=== PATIENT | female | born 1945 | race Caucasian/White ===

== ENCOUNTER → 2018-11-22 09:40 | Outpatient (CLI) | payer MEDICARE, OTHER, SELFPAY ==
--- NOTE | 2018-11-22 | DI.MRI.S_ITS ---
PROCEDURE: MR KNEE RT WO CON INDICATIONS: Unilateral primary osteoarthritis, right knee TECHNIQUE: Noncontrast sagittal PD fast spin echo and T2 fast spin echo with fat saturation, sagittal 3-D FLASH with fat saturation; coronal T1 spin echo and PD fast spin echo with fat saturation, and axial PD fast spin echo with fat saturation through the knee. COMPARISON: [facility], RG, KNEE MIN 4VW (RT), 10/12/2016, 11:09. [facility] [place], CR, XR KNEE ARTHRITIC SERIES RT, 10/19/2018, 10:26. FINDINGS: Image quality: Excellent. Menisci: There is severe degenerative tear of both the medial and lateral menisci. There is tear of the posterior meniscal root ligament of the lateral meniscus. Cruciate ligaments: The anterior cruciate ligament is torn, which is likely chronic in the absence of findings of acute knee injury. The posterior cruciate ligament appears intact. Medial structures: The medial collateral ligament appears intact. The posterior oblique ligament, semimembranosus tendon insertions, oblique popliteal ligament, and meniscocapsular junction appear intact. Visualized portions of the pes anserinus tendons appear normal. No abnormal bursal fluid. Lateral structures: The lateral collateral ligament, long and short heads of the biceps femoris tendon appear intact. The popliteus tendon appears normal; the popliteofibular ligament appears intact. The posterosuperior and anteroinferior popliteomeniscal fascicles appear intact. The arcuate and fabellofibular ligaments appear intact, on either side of the lateral inferior geniculate artery. Iliotibial band appears normal. Anterior structures: The quadriceps and patellar tendons appear intact. Patellar alignment is normal. No femoral trochlear dysplasia or ventral trochlear prominence. No edema in the infrapatellar fat pad. Bones and cartilage: No bone marrow contusions or fractures. There is a large osteophyte arising from the anterior aspect of the lateral femoral condyle. There is tricompartmental cartilage loss and single degeneration with cartilage denuded articular surfaces. Reactive marrow edema is present in the medial and lateral tibial plateaus and femoral condyles. There is a large cyst under the tibial eminence. Joint space: Severe tricompartmental joint space narrowing. There is an several intra-articular body within the patellofemoral joint (best seen on series 8 image 38). There is moderate sized knee joint fluid. There is a small Carlin's cyst. Normal appearing synovial plicae are incidentally noted. IMPRESSION: 1. Chronic ACL tear. 2. Severe degenerative tear of the medial and lateral menisci. 3. Severe tricompartmental knee joint degeneration with cartilage denudation. 4. Moderate knee joint effusion. 5. There is an intra-articular body within the patellofemoral joint. 6. A small Carlin's cyst. Dictated by: Fred Holman M.D. on 11/22/2018 at 11:23 Approved by: Fred Holman M.D. on 11/22/2018 at 18:20
== END ==
PROVIDERS: PCP Family Medicine; Visit Provider Orthopaedic Surgery
DX: M17.11 Unilateral primary osteoarthritis, right knee (principal); M23.251 Derangement of posterior horn of lateral meniscus due to old tear or injury, right knee; M23.203 Derangement of unspecified medial meniscus due to old tear or injury, right knee; M23.8X1 Other internal derangements of right knee; M25.461 Effusion, right knee; M71.21 Synovial cyst of popliteal space [Baker], right knee
CPT/HCPCS: 73721

== ENCOUNTER 2019-01-03 07:56 | Day surgery (SDC) | payer MEDICARE, OTHER, SELFPAY ==
[2018-12-27 08:43] VITALS: BMI 25.2
[2019-01-03] VITALS (16 sets, daily range): BP systolic 118–158; BP diastolic 76–97; PULSE 64–97; RESP 12–20; TEMP 35.6–37; O2SAT 93–100; BMI 25.2
--- NOTE | 2019-01-03 06:00 | DI.RAD.S_ITS ---
PROCEDURE: XR KNEE RT 1TO2V INDICATIONS: post operative total right knee TECHNIQUE: 2 view(s) of the knee acquired. COMPARISON: None. FINDINGS: Bones: Patient is status post knee joint arthroplasty. Hardware components are in expected positions. Visualized bony structures are intact. Soft tissues: Overlying postoperative changes are noted. IMPRESSION: Expected postoperative appearance Dictated by: Rodney Lobo M.D. on 01/03/2019 at 16:07 Approved by: Rodney Lobo M.D. on 01/03/2019 at 16:08
[2019-01-03] MEDS: ACETAMINOPHEN 325 MG TABLET 975 MG PO ×2 (09:13→20:48)
[2019-01-03] MEDS: CELECOXIB 200 MG CAPSULE PO (09:14)
[2019-01-03] MEDS: PREGABALIN 75 MG CAPSULE PO (09:14)
[2019-01-03] MEDS: LACTATED RINGERS 1,000 ML 42 ML IV ×2 (09:14→12:23)
[2019-01-03] MEDS: VANCOMYCIN 1,000 MG/200 ML PIGGYBACK 200 MG IV (09:45)
--- NOTE | 2019-01-03 09:53 | PM.PREOP ---
Pre-operative Note Interval Note History & Physical reviewed/Exam performed by Physician: Yes Changes to H&P: No
--- NOTE | 2019-01-03 09:54 | P.OP_ITS ---
Operative Date/Time/Diagnoses Date of procedure: 01/03/19 Time of procedure: 10:53 Pre-op diagnosis: right knee OA Post-op diagnosis: same Procedure & Clinicians Procedure: Right total knee arthroplasty Same procedure as scheduled: Yes Indications: The patient has had progressively worsening right knee pain with radiographic changes consistent with arthritis. Non-operative management has failed and the patient has requested total knee replacement. The risks, benefits and alternatives to surgery were discussed with the patient prior to proceeding. Risks discussed included, but were not limited to, failure to relieve pain, stiffness, infection, nerve damage, deep venous thrombosis, pulmonary embolism, stroke, coma, heart attack, permanent paralysis and , as well as the potential need for eventual revision of the prosthetic. Surgeon: Radha Dsouza Supervisor Finish End: Jenny Angelo Anesthesia Type: General and Spinal Operative Notes Findings: Severe right knee osteoarthritis, good stability Closure Type: primary Specimen(s): none sent Prosthetic devices, grafts, tissues, transplants, or devices: Dsouza and Nephew Isidroney BCS 2 size 5 right femur, size 4 right tibia, +10 poly, 35 x 7.5 mm patella Applied: drain(s) Estimated Blood Loss (mL): 250 Blood products transfused: none Tourniquet time (min): 76 Procedure in detail: The patient was seen in the pre-operative area, where the patient identified the right knee as the operative site and this was marked with my initials. The patient received pre-operative antibiotics, and was taken to the operating room and placed on the operative table in the supine position. After satisfactory anesthesia, a real time trader out was performed. The right leg was encircled with a tourniquet about the proximal thigh, and the leg was prepared from the toes to the tourniquet with ChloroPrep in the usual fashion and draped through sterile drapes. The leg was elevated and exsanguinated with Eschmark bandage and the tourniquet inflated to [250] mmHg pressure. The knee was approached through an approximately 18 cm incision centered over the patella and carried into the knee through a medial parapatellar arthrotomy. A portion of the medial and lateral meniscus was resected. Soft tissue was carefully mobilized around the patella the patella was measured with a caliper. Bone was resected from the patella and the patellar height was reconstituted with up an appropriate sized patellar component. A cover was then placed on the patella. A small amount of additional medial and lateral meniscus was resected. The visionare guide fit well to the distal femur. It looked like an appropriate distal femoral cut and the cut was made without difficulty. The rotation was assessed and the appropriate size femoral guide was placed on the distal femur and finishing cuts were made. There was no evidence of notching. The anterior, posterior and chamfer cuts were then made. The posterior osteophytes and soft tissues were then removed. The posterior capsule was injected with part of a mixture of 60 ml 0.25% Marcaine mixed with 20 ml Exparel for post operative pain control. The remainder of this mixture was injected into the capsule and subcutaneous tissues during cement curing. The tibia was prepared and the visionaire guide fit well to the distal tibia. The rotation was assessed. The patient was placed in extension residual medial and lateral meniscus as well as any residual bone was carefully resected. [No] additional tibia was resected. Hemostasis was achieved especially posteriorly. Additional local was injected into the posterior capsule. The extension gap was assessed and additional releases for gap balancing were performed as necessary. It was checked with the gap nut roaster helper. The femoral component was trial was placed and the notch was finished. Trial tibial and femoral components were then placed and the knee placed through a range of motion. Range of motion was [0-130], with good stability throughout the range. The trials were then removed, and the tibia was finished. The bone was prepared with pulsatile lavage, and dried with a sponge. Cement was applied and the final prosthetics placed. Excess cement was removed during and after cement curing. A brief Betadine soak was performed. After confirming there was no extruded cement posteriorly, the final tibial insert was placed. The knee was copiously irrigated and the tourniquet deflated. Hemostasis was obtained with the Bovie. A drain was placed and brought out superolaterally. The capsule was closed with interrupted Vicryl. The subcutaneous layer was closed with barbed sutures, and the skin with a running 3-0 V-Lock suture and Surgical glue. An Aquacel Ag dressing was applied and the patient was taken to recovery having tolerated the procedure well. Complications: none Condition: stable Disposition: Acute Care Plan for aftercare: The patient will be maintained on a standard total knee replacement protocol with weight bearing as tolerated. The patient will receive aspirin and sequential compression devices for DVT prophylaxis. The patient will be discharged home when safe for the home environment.
[2019-01-03] MEDS: CEFAZOLIN 2 GM/100 ML FROZ.PIGGY IV ×2 (11:03→18:31)
[2019-01-03] MEDS: TRANEXAMIC ACID 1,000 MG VIAL 2000 MG INJ ×2 (11:08→12:10)
--- NOTE | 2019-01-03 11:19 | SUR.OPER ---
Supine on padded OR bed. Pillow under head, arms secured on padded armboards <90 degree abduction. Safety belt across torso. Non-operative leg secured with tape over blanket over lower leg. Operative leg secured in DeMayo/Isaac positioner. Foam padded brace at thigh of operative leg.
[2019-01-03] MEDS: BUPIVACAINE 0.25% W/ EPI 30 ML VIAL 60 ML INJ (11:33)
[2019-01-03] MEDS: BUPIVACAINE LIPOSOME 266 MG/20 ML VIAL INJ (11:33)
[2019-01-03] MEDS: POVIDONE-IODINE 15 ML, SODIUM CHLORIDE 0.9% 250 ML TOP (11:34)
--- NOTE | 2019-01-03 13:39 | SUR.PHASEI ---
pt in stable condition, vss. Report called to BLUE Arechiga on acute care floor. pt being transferred to acute care floor at this time.
--- NOTE | 2019-01-03 13:51 | SUR.PHASEI ---
pt transferred to acute care floor in stable condition, vss. pt alert and talking to RN during transport. Bedside report given to ADRIAN Arechiga upon arrival to room. Transferred care of pt to Adrian Kahn at that time. No change in pt from time left PACU.
[2019-01-03] MEDS: LACTATED RINGERS 1,000 ML 125 ML IV ×2 (14:27→23:16)
--- NOTE | 2019-01-03 15:43 | PC.NURSE ---
Day Shift- Report rec'd from PACU by RN Coordinator Hawk. Pt arrived to unit room 215 at 1347 via bed. Hawk and BENJAMIN in room. At 1415, assessed pt and admission assessment complete. Rates 1-2/10 pressure to right knee. Right knee aquacel dressing CDI with amirah wrap. CMS+, PPP. At 1455, hemovac unclamped. Post op instructions explained to pt. Call light within reach.
--- NOTE | 2019-01-03 17:33 | PT.IIE ---
Current Diagnoses Unilateral primary osteoarthritis, right knee (01/03/19) Surgery Performed Operation Date: 01/03/19 10:45 Actual Procedures p Total Knee Arthroplasty(Right) - Radha Dsouza MD Surgical History (Last Updated 12/27/18 @ 09:08 by Nai Teague, RN) Hx of bilateral cataract extraction (Acute ~2019) Medical History (Last Updated 12/27/18 @ 09:13 by Nai Teague, RN) Anxiety about health (Acute) HTN (hypertension) (Acute) Hx of vaginal delivery (Acute) Seasonal allergies (Acute) Thin skin (Acute) Physical Therapy Inpatient Evaluation/Re-Eval M1 PT/OT-IP Prior Functional Status Start: 01/03/19 17:18 Freq: NEEDED Status: Active Protocol: Document 01/03/19 17:18 EA (Rec: 01/03/19 17:33 EA [id number]) Medical Review Prior Functional Status Medical History Reviewed Yes Diet/Fluid Consistency Regular Communication normal Mobility and Gait Indep with no AD used. No fall reported in the past 6 months Activities of Daily Living and IADL's Independent Social History Household Members none Living Arrangements Apartment/Condo Number of Floors (Floors) Two Floors Number of Stairs To Enter/Railing? 16 steps with rails. Patient states will stay on her friend with single stair only Home Environment Standard Height Toilet Home Equipment Front Wheel Walker Straight Cane Employment Status Retired Additional Social History Comment Lives alone M2 PT-IP Current Condition Start: 01/03/19 17:18 Freq: NEEDED Status: Active Protocol: Document 01/03/19 17:18 EA (Rec: 01/03/19 17:33 EA [id number]) Physical Therapy Current Condition Weight Bearing Status Weight Bearing Status Weight Bear as Tolerated M3 PT-IP Subjective Start: 01/03/19 17:18 Freq: NEEDED Status: Active Protocol: Document 01/03/19 17:18 EA (Rec: 01/03/19 17:33 EA [id number]) Subjective Physical Therapy Visit Type Type Initial Evaluation Visit Start Time 16:50 Visit Stop Time 17:25 Total Visit Minutes 35 Physical Therapy Visit Comments Patient Comments Patient would like to transfer to chair. Patient Goals Be able to naviaget 1 steps and be indep in transfer prior to discharge Therapy Pain Assessment Pain When Pain Assessed At Rest Pain Present Pain Present Pain Reported Location Right Knee Intensity 3 Scale Used Numeric (1 - 10) Description Acute Pain Behaviors Wincing M4 PT-IP Mobility and Gait Start: 01/03/19 17:18 Freq: NEEDED Status: Active Protocol: Document 01/03/19 17:18 EA (Rec: 01/03/19 17:33 EA [id number]) PT-Bed Mobility Assessment Supine to Sit Supine to Sit Standby Assistance Sit to Supine Sit to Supine Standby Assistance Scooting Scooting to Edge of Bed Standby Assistance PT-Transfer Assessment Sit to and From Stand Sit to and from Stand Contact Guard Assistance Equipment Transfer Assistive Device Gait Belt Front Wheeled Walker Orthotic/Prosthetic Devices or Brace: No Transfers Transfer Destination Bed Chair Bedside Commode Transfer Technique stepping Transfer Ability Level of Assist Contact Guard Assistance Gait Assessment Gait Gait Assistance Required: Contact Guard Assist Distance (Feet) 8 Able to Maintain Weight Bearing Status Yes During Gait Assistive Devices Assistive Device Gait Belt Front Wheeled Walker Gait Deviations General Gait Pattern Antalgic Factors Limiting Gait Function Factors Limiting Gait Function Decreased Strength Pain Comments Gait Comments Requires cues for foot placement and sequencing PT-Balance Assessment Sitting Balance and Reactions Static Sitting Balance Ability Good Dynamic Sitting Balance Ability Good Standing Balance and Reactions Static Standing Balance Ability Good Dynamic Standing Balance Ability Fair M5 PT-IP Objective Assessments Start: 01/03/19 17:18 Freq: NEEDED Status: Active Protocol: Document 01/03/19 17:18 EA (Rec: 01/03/19 17:33 EA [id number]) Orientation Orientation/Cognition Level of Alertness Alert Orientation Name Age Birthday Month Date Language Function Ability No Deficits Noted Safety Awareness Understands Safety Issues Memory Description No Deficits Noted Gross Range of Motion Upper Extremity ROM Assessment Within Functional Limits Lower Extremity ROM Assessment Right Impaired Impairments N/A but with at least 0-90 deg F/E Strength Upper Extremity Strength Assessment Within Functional Limits Lower Extremity Strength Assessment Right Impaired Knee at least 3+/5 Coordination Assessment Gross Coordination Gross Coordination WNL Assessment Finger to Nose Test Normal Performance Sensation Assessment Sensation Gross Sensation WNL Light Touch Intact Proprioception (Position) Intact M6 PT-IP Treatment Start: 01/03/19 17:18 Freq: NEEDED Status: Active Protocol: Document 01/03/19 17:18 EA (Rec: 01/03/19 17:33 EA [id number]) Physical Therapy Treatment Exercises Exercises Ankle Pumps Gluteal Sets Quad Sets Heel Slides Straight Leg Raises Short Arc Quads Passive Knee Extension Hang Seated Knee Flexion/Extension Education Education Provided Precautions Weight Bearing Status Post-Op Packet Safety M7 PT-IP Assessment and Plan Start: 01/03/19 17:18 Freq: NEEDED Status: Active Protocol: Document 01/03/19 17:18 EA (Rec: 01/03/19 17:33 EA [id number]) PT Summary Assessment and Plan Potential Rehabilitation Potential Good Status of Condition at Evaluation Stable Summary Impairments Pain ROM Strength Balance Bed Mobility Transfers Gait Activity Tolerance Assessment Summary Patient demonstrates decreased tolerance to functional transfers and mobility and that requires assistance for safety at this time. Patient would benefit with skilled PT to improve transfers, ambulation, gait, and ability to navigate stair prior to discharge for safety. Patient shows good rehab potential and will likely reach her functional independence. Goals Bed Mobility Goal Independent Transfer Goal Independent Gait Goal Independent Gait Distance 50 ft Other Goals stairs x 2 steps with no rails Days to Meet Goals 2 Frequency of Treatment Frequency Of Treatment Twice a Day Treatment Plan Physical Therapy Treatment Plan Bed Mobility Training Transfer Training Gait Training Therapeutic Exercise Post Op Education Discharge Planning Neuromuscular Re-ed Manual Therapy Recommendations To Nursing Amount of Assist Needed Standby Assistance Discharge Recommendations PT Discharge Recommendations Home with Assistance
[2019-01-03] MEDS: ATENOLOL 25 MG TABLET PO (20:45)
[2019-01-03] MEDS: DOCUSATE 100 MG CAPSULE PO (20:46)
[2019-01-03] MEDS: ASPIRIN EC 81 MG TABLET PO (20:46)
--- NOTE | 2019-01-03 23:44 | PC.NURSE ---
Addendum entered by Tatiana Monroy R.N. 01/04/19 06:13: Continues to deny pain. Discussed taking Tylenol now but wants pain med on board when doing PT and does not want to take any narcotics so decided to wait until later for scheduled Tylenol. States no real pain just an ache. Ice packs applied. Original Note: Patient is alert and oriented. Breath sounds CTA with RA sat of 98%; on continuous pulse oximetry. HRR. Denies nausea. BT present and is passing flatus. Able to move self in bed and gets up to bathroom with walker and SBA. Dressing (Aquacel + amirah wrap) to right knee is CDI. Hemovac is intact and compressed. Some swelling noted around knee; encouraged ankle waving. Wearing bilateral SCD's. CMS intact. Fall risk score is moderate; bed alarm is activated. States pain is only an ache with severity of 1/10; ice applied to knee. Daughter rooming in.
[2019-01-04] MEDS: CEFAZOLIN 2 GM/100 ML FROZ.PIGGY IV (00:58)
[2019-01-04 04:15] VITALS: BP 122/79; PULSE 68; RESP 17; O2SAT 100
[2019-01-04] MEDS: ATENOLOL 25 MG TABLET PO (06:09)
[2019-01-04 06:40] VITALS: TEMP 36.6
[2019-01-04 07:15] LABS: Hematocrit 34.8 % (36-46); Hemoglobin 11.6 g/dL (12.0-16.0)
[2019-01-04] MEDS: ACETAMINOPHEN 325 MG TABLET 975 MG PO (08:40)
[2019-01-04] MEDS: SODIUM CHLORIDE 0.9% FLUSH 10 ML IV (08:40)
[2019-01-04] MEDS: ASPIRIN EC 81 MG TABLET PO (08:40)
--- NOTE | 2019-01-04 09:34 | PT.IPTN ---
Current Diagnoses Unilateral primary osteoarthritis, right knee (01/03/19) Surgery Performed Operation Date: 01/03/19 10:45 Actual Procedures p Total Knee Arthroplasty(Right) - Radha Dsouza MD Physical Therapy Treatment Note M2 PT-IP Current Condition Start: 01/03/19 17:18 Freq: NEEDED Status: Active Protocol: Document 01/03/19 17:18 EA (Rec: 01/03/19 17:33 EA [id number]) Physical Therapy Current Condition Weight Bearing Status Weight Bearing Status Weight Bear as Tolerated M3 PT-IP Subjective Start: 01/03/19 17:18 Freq: NEEDED Status: Active Protocol: Document 01/04/19 09:00 LJ (Rec: 01/04/19 09:34 LJ [email or web address]) Subjective Physical Therapy Visit Type Type Treatment Note Visit Start Time 09:00 Visit Stop Time 09:25 Total Visit Minutes 25 Physical Therapy Visit Comments Patient Comments wants to get up and walk Therapy Pain Assessment Pain When Pain Assessed During Mobility Pain Present Pain Present Pain Reported M4 PT-IP Mobility and Gait Start: 01/03/19 17:18 Freq: NEEDED Status: Active Protocol: Document 01/04/19 09:00 LJ (Rec: 01/04/19 09:34 LJ [id number]) PT-Bed Mobility Assessment Supine to Sit Supine to Sit Standby Assistance Sit to Supine Sit to Supine Standby Assistance Scooting Scooting to Edge of Bed Standby Assistance PT-Transfer Assessment Sit to and From Stand Sit to and from Stand Standby Assistance Equipment Transfer Assistive Device Gait Belt Front Wheeled Walker Orthotic/Prosthetic Devices or Brace: No Transfers Transfer Destination Bed Transfer Technique Stand Step Pivot Transfer Ability Level of Assist Standby Assistance Comments Mobility Comments Pt SBA for all bed mobility. Reports very little pain with all mobility. Gait Assessment Gait Gait Assistance Required: Standby Assistance Contact Guard Assist Distance (Feet) 150 Assistive Devices Assistive Device Gait Belt Front Wheeled Walker Gait Deviations General Gait Pattern Antalgic Factors Limiting Gait Function Factors Limiting Gait Function Decreased Activity Tolerance Decreased Strength Pain Comments Gait Comments Pt with mostly step-to pattern using FWW appropriately. Reports fatigue but not pain with ambulation. Able to fully weight bear and advance involved LE suffeciently. Stair Climbing Assessment Evaluation Level of Assist On Stairs Standby Assistance Devices Stair Climbing Assistive Devices Left Railing Right Railing Technique/Endurance Stair Climbing Direction Ascend and Descend Stair Climbing Technique Step Over Step Number of Steps Climbed 3 Stair Climbing Set # Repetitions (reps) 3 Comments Stair Climbing Comments Pt able to ascend and descend with either LE leading using bilateral rails M5 PT-IP Objective Assessments Start: 01/03/19 17:18 Freq: NEEDED Status: Active Protocol: Document 01/03/19 17:18 EA (Rec: 01/03/19 17:33 EA [id number]) Orientation Orientation/Cognition Level of Alertness Alert Orientation Name Age Birthday Month Date Language Function Ability No Deficits Noted Safety Awareness Understands Safety Issues Memory Description No Deficits Noted Gross Range of Motion Upper Extremity ROM Assessment Within Functional Limits Lower Extremity ROM Assessment Right Impaired Impairments N/A but with at least 0-90 deg F/E Strength Upper Extremity Strength Assessment Within Functional Limits Lower Extremity Strength Assessment Right Impaired Knee at least 3+/5 Coordination Assessment Gross Coordination Gross Coordination WNL Assessment Finger to Nose Test Normal Performance Sensation Assessment Sensation Gross Sensation WNL Light Touch Intact Proprioception (Position) Intact M6 PT-IP Treatment Start: 01/03/19 17:18 Freq: NEEDED Status: Active Protocol: Document 01/03/19 17:18 EA (Rec: 01/03/19 17:33 EA [id number]) Physical Therapy Treatment Exercises Exercises Ankle Pumps Gluteal Sets Quad Sets Heel Slides Straight Leg Raises Short Arc Quads Passive Knee Extension Hang Seated Knee Flexion/Extension Education Education Provided Precautions Weight Bearing Status Post-Op Packet Safety M7 PT-IP Assessment and Plan Start: 01/03/19 17:18 Freq: NEEDED Status: Active Protocol: Document 01/04/19 09:00 LJ (Rec: 01/04/19 09:34 LJ [id number]) PT Summary Assessment and Plan Summary Assessment Summary Pt near independent for all bed mobility and gait. Very little pain reported. Demonstrated safety awareness and use of FWW. Safe to D/C home with assistance. Frequency of Treatment Frequency Of Treatment Twice a Day Treatment Plan Physical Therapy Treatment Plan Bed Mobility Training Transfer Training Gait Training Therapeutic Exercise Post Op Education Discharge Planning Neuromuscular Re-ed Manual Therapy Recommendations To Nursing Amount of Assist Needed Standby Assistance Discharge Recommendations PT Discharge Recommendations Home with Assistance
--- NOTE | 2019-01-04 10:24 | PM.DS.1 ---
History of Present Illness Date Patient Seen: 01/04/19 Time Patient Seen: 10:24 Chief complaint: [id number] Right Total Knee Arthroplasty Narrative: Hospital day 2, postop day 1 following right total knee arthroplasty by Dr. Dsouza. Patient has remained stable. She did work with PT yesterday and felt she was stable for home. Her daughter has been staying with her in the room. She is thus with path patient and has prescriptions for oxycodone and Vistaril at home. She wants to avoid narcotics if possible. Scheduled to go to [facility] in [place]. Discharge Providers Date of admission: 01/03/19 07:56 Discharge Date: 01/04/19 Primary care physician: Alejandro Negron DO Consults: 01/03/19 06:00 Consult to Anesthesiology Routine Comment: Consulting Provider: Anesthesiologist Reason for consultation: Regional block for post operative pain control 01/03/19 14:09 Consult to Discharge Planning Routine Comment: Consult to Physical Therapy Evaluate & Treat Comment: Physician Instructions: postop TKA protocol Consult to Respiratory Therapy Evaluate & Treat Comment: Physician Instructions: Evaluate and treat Discharge provider: Zan Marino PA-C Summary Discharge Diagnosis: Status post right total knee arthroplasty Hospital Course: Patient brought to hospital on 01/03/2019 for above-noted surgery. She remained stable postoperatively. Progressed with physical therapy. Ready for discharge home on postop day 1. Status at Discharge Cognitive/behavioral status at discharge: oriented Functional status at discharge: uses cane/walker Overall status at discharge: patient is progressing back to baseline Time Spent with Patient Less than 30 minutes Exam Vital Signs (past 8 hours): - 01/04/19 04:15 01/04/19 06:40 Temperature 97.9 F Pulse Rate 68 Respiratory Rate 17 Blood Pressure 122/79 Pulse Oximetry 100 Fraction of Inspired Oxygen 21 Oxygen Delivery Method Room Air Oxygen Flow Rate 0 Narrative Exam Narrative: Alert, oriented no acute distress resting in bed. Legs. Reggie wrap an Aquacel dressing to right knee is dry without drainage or inflammation. No calf pain or swelling. Pulses symmetrical. Objective Labs Result Diagrams: 01/04/19 06:40 Labs: Laboratory Results - last 24 hr 01/04/19 06:40 Hgb 11.6 L Hct 34.8 L Discharge Plan Discharge Plan Patient Disposition: Home Discharge comment: Discharge home after cleared by PT. She is a [facility] patient and has prescription for oxycodone at home. She is scheduled to go to [facility] in [place]. Discharge Med Rec/Prescriptions Prescriptions: New acetaminophen 325 mg Tablet 975 mg PO TID Qty: 30 RF: 0 aspirin 81 mg Tablet,Delayed Release (Dr/Ec) 81 mg PO BID Qty: 60 RF: 0 Continued atenolol 50 mg Tablet 25 mg PO BID RF: 0 Follow up/Referrals: Alejandro Negron DO [Primary Care Provider] - Provider Discharge Instructions Diet: Diet as Tolerated Activity: Ambulate as tolerated. Use walker as needed. Do range of motion right knee as much as possible. Cold/Heat Therapy: Cold pack to right knee as needed. Skin/Wound/Dressing Care Report to your healthcare provider any signs of infection, such as:: chills, fever, night sweats, increased pain, unusual drainage and unusual redness Dressing: Keep Aquacel dressing in place until postop visit. Visit Report/Discharge Packet Instructions: DI for Knee Replacement Discharge Data Primary Care Provider: Alejandro Negron Attending Provider: Radha Dsouza Admit Date/Time: 01/03/19 07:56 Quality VTE Deep Vein Thrombosis/Pulmonary Embolism Present on Admission: No
[2019-01-04 10:53] VITALS: BP 123/86; PULSE 70; RESP 18; TEMP 36.4; O2SAT 100
--- NOTE | 2019-01-04 11:06 | CM.DANOTE ---
Addendum entered by Yi Bah LPN 01/04/19 11:22: Went to room to check in with pt. RN [facility] was just clearing out the room and confirmed that pt's daughter Nikki, who was staying with pt during her recovery, was just here, that pt was eager to get home and they had just left for home a few minutes ago. No concerns re the d/c plan were noted. Original Note: Discharge Planning/Care Management DCP: assessment: case received, EMR reviewed. Discussed in Team Rounds. Ortho PATRICIA Marino stated pt would d/c today pending clearance by PT. He stated pt was set up with OUTPT PT at [facility] in [place]. See that PT did see pt this morning and has cleared her for the d/c to home setting. Will check in now with pt. CM Discharge Assessment Start: 01/04/19 11:05 Freq: Status: Active Protocol: Document 01/04/19 11:05 ITV (Rec: 01/04/19 11:06 ITV [id number]) Discharge Planning Assessment Advance Directives? No History Provided By Patient Medical Record Prior Living Arrangements Apartment/Condo Household Members none Is patient alert and oriented? Yes Review Status In Process Pre-Anesthesia Assessment Start: 12/27/18 08:43 Freq: Status: Complete Protocol: Document 12/27/18 08:43 CAB (Rec: 12/27/18 09:31 CAB [id number]) Pre-Anesthesia Assessment Patient Information Reviewed Via Phone Assessment Assessment Completed With Patient Primary Care Provider Alejandro Negron Seen Specialist in Last 12 Months Yes Specialist Seen Orthopedist Other Comment Accupuncture Primary Language Bhutanese Multimedia Technician Required No Height 172.72 cm Weight 75.296 kg Body Mass Index (BMI) 25.2 Hearing Ability Normal Visual Assist Magnifying Glass Dentition Type Teeth, Natural Present Barriers to Learning None Other Aids No Hx Anesthesia Reactions No: No prior GA, cataract surgery only per pt Hx Family Anesthesia Reaction No Hx Malignant Hyperthermia No Hx Blood Transfusions No Anesthesia Review Requested No Novelties Sales Representative No alcohol intake never Smoking Status Never smoker Substance Use Type does not use Pain Present Pain Reported Musculoskeletal Symptoms Difficulty Walking Joint Pain History of Falling (Recent or History of No ) Patient is completely paralyzed or No completely immobile Mental Status Oriented to own ability Is patient on oxygen? No Does patient have JIMENES/SOB No Hx Sleep Apnea No Currently Taking a Beta Hector Yes: Atenolol Can You Climb a Flight of Stairs Without Yes SOB Hx Chest Pain No Hx SOB No Hx Syncope or Dizziness No Anti-Coagulant Therapy No Has a County Ordinary No Cardiac Testing No Hx Pacemaker/ICD No Pacemaker Rep Required? No Cardiac Clearance Received Not Applicable Diet Type At Home Vegetarian dysphagia No Bladder Pattern Frequency Urinary Catheter Present No Hx Urinary Self Catheterization No Diabetes No Patient No Lactating No Hx Drug Resistant Organism No Presence of External or Internal Medical Yes: Bilateral eye lens Devices Have you traveled outside the [facility] in the last 30 days? Marital Status Lives With none Prior Living Arrangements Apartment/Condo Support System Child/Children Does the Patient Have Assistance After Yes Surgery Patient Discharge Plan Description Return Home Comment Pt advised same day surgery per surgeon Feels Safe in Current Environment Yes Been Physically Hurt or Threatened By a No Person in Current Environment Do you have thoughts of harming yourself None or others? Are you currently considering suicide? No Do you have a plan to hurt yourself or No Plan others? Do You Have Any Spiritual Beliefs That No May Affect Your HC Choices? Do You Have Any Cultural Practices That No May Affect Your HC Choices? Comment Muslim Who Can We Speak to About Patient's Care Family, friends Identifying Code for Release of Patient Declines to issue Information Health Care Proxy/Next of Kin Nikki (daughter) Health Care Proxy Emergency Contact Name Nikki (daughter) Emergency Contact Advance Directives? No: Declines further information Power of Park Guide No PAC Instructions Do not shave/clip surgical site Durable medical equipment Medications to take/avoid Nasal antibiotic No ETOH/petroleum product on skin DOS NPO Post-op transportation Pre-surgical wash Sturdy shoes/comfortable clothes Do not bring valuables and remove jewelry
--- NOTE | 2019-01-04 11:22 | PC.NURSE ---
Pt dressed and ready for discharge home with daughter. HL and HV removed. Went over d/c instructions with Pt and daughter - discussed d/c meds, time of last dose, s/s of infection, follow up, icing knee, and stroke education. Pt denies further questions and was taken out via w/c by TELEPHONE CLERK TELEGRAPH OFFICE to POV with daughter and all belongings.
== END 2019-01-04 11:25 | disposition home or self-care (01) ==
LOC: AC 01-04 10:29 → OR 01-04 12:00
PROVIDERS: PCP Family Medicine; Visit Provider Orthopaedic Surgery
PROC: 0SRC0JZ Replacement of Right Knee Joint with Synthetic Substitute, Open Approach (ICD-10-PCS; CPT 27447; principal; 2019-01-03 10:45)
DX: M17.11 Unilateral primary osteoarthritis, right knee (principal); J45.909 Unspecified asthma, uncomplicated
CPT/HCPCS: 27447; 36415; 73560; 85014; 85018; 94760; 94762; 97116; 97161; 97530; C1776; C9290; J0690; J1100; J2250; J2405; J2704; J3010

== ENCOUNTER → 2020-01-27 11:49 | Outpatient (CLI) | payer MEDICARE, OTHER, SELFPAY ==
[2019-01-03 14:31] VITALS: BMI 25.2
[2020-01-27 12:02] LABS: RBC Urine None Seen (0-5/HPF)
[2020-01-27 12:23] LABS: Add Manual Diff / Slide Review NO; Basophils Absolute Auto 0 /uL (0-100); Basophils Percent Auto 0.6 % (0-2); Eosinophils Absolute Auto 0 /uL (0-450); Eosinophils Percent Auto 0.9 % (2-4); Hematocrit 39.3 % (36-46); Hemoglobin 13.3 g/dL (12.0-16.0); Lymphocytes Absolute Auto 1000 /uL (1100-4500); Lymphocytes Percent Auto 24.7 % (25-40); Mean Corpuscular HGB Conc 33.9 % (30-36); Mean Corpuscular Hemoglobin 27.9 PG (26-34); Mean Corpuscular Volume 82.4 fL (80-100); Monocytes Absolute Auto 400 /uL (0-900); Neutrophils Absolute Auto 2600 /uL (1500-7000); Neutrophils Percent Auto 64.8 % (50-75); Platelet Count 219 X10^3/uL (150-400); Red Blood Cell Count 4.77 X10^6/uL (4.0-5.2); Red Cell Distribution Width 14.2 % (11.6-14.8)
[2020-01-27 12:34] LABS: Hemoglobin A1C% w Est Avg Glu 5.4 % (4.0-6.0)
[2020-01-27 13:12] LABS: BUN Creatinine Ratio 20.3 (6-22); Blood Urea Nitrogen 12 mg/dL (7-17); Calcium 9.8 mg/dL (8.4-10.2); Carbon Dioxide 29 mmol/L (22-32); Chloride 93 mmol/L (98-107); Estimated Glomerular Filt Rate > 60.0 mL/min (>60); Glucose 112 mg/dL (80-110); HEMOLYSIS < 15 (0-50); Potassium 3.9 mmol/L (3.4-5.1); Sodium 130 mmol/L (137-145)
[2020-01-27 14:30] LABS: Appearance Urine UA CLEAR; Bilirubin Urine UA NEGATIVE (NEGATIVE); Color Urine UA YELLOW; Glucose Urine UA NEGATIVE (Negative); Ketones Urine UA NEGATIVE (NEGATIVE); Leukocyte Esterase Urine UA 1+ (NEGATIVE); Nitrite Urine UA NEGATIVE (Negative); Occult Blood Urine UA NEGATIVE (Negative); Protein Urine UA NEGATIVE (Negative); Specific Gravity Urine UA <=1.005 (1.000-1.035); Urobilinogen Urine UA 0.2 E.U./dL (0.2)
[2020-01-27 14:32] LABS: pH Urine UA 6.5 (4.5-8.0)
[2020-01-27 14:40] LABS: Bacteria Urine Many (>30); Culture Indicated Urine Specimen Cultured; Renal Epithelial Cells Urine 0-1/HPF (0-1/HPF); Squamous Epithelial Cell Urine 0-1 /HPF (0-5/HPF); Transitional Epi Cells Urine 0-1/HPF (0-5/HPF); WBC Urine 1-5/HPF (0-5/HPF)
== END ==
PROVIDERS: PCP Family Medicine; Referring Provider Orthopaedic Surgery; Visit Provider Orthopaedic Surgery
DX: Z01.818 Encounter for other preprocedural examination (principal); Z01.812 Encounter for preprocedural laboratory examination; R73.9 Hyperglycemia, unspecified; N39.0 Urinary tract infection, site not specified
CPT/HCPCS: 36415; 80048; 81001; 83036; 85025; 87077; 87086; 87186; 93005

== ENCOUNTER → 2020-02-04 11:35 | Outpatient (CLI) | payer MEDICARE, OTHER, SELFPAY ==
[2019-01-03 14:31] VITALS: BMI 25.2
--- NOTE | 2020-02-04 | DI.MRI.S_ITS ---
PROCEDURE: MR KNEE LT WO CON INDICATIONS: Pain in left knee TECHNIQUE: Noncontrast sagittal PD fast spin echo and T2 fast spin echo with fat saturation, sagittal 3-D FLASH with fat saturation; coronal T1 spin echo and PD fast spin echo with fat saturation, and axial PD fast spin echo with fat saturation through the knee. COMPARISON: [facility] [place], CR, XR KNEE 1 OR 2 VIEWS LEFT, 01/27/2020, 9:38. [facility], MR, MR KNEE RT WO CON, 11/22/2018, 9:51. FINDINGS: Image quality: Excellent. Menisci: Medial extrusion of the medial meniscus is present. There is irregular complex tearing of the anterior horn, body, and posterior horn medial meniscus. There is detachment of the posterior horn medial meniscus. There is amorphous and linear high signal intensity within the anterior horn, body, and posterior horn lateral meniscus, demonstrating superior and inferior articular surface extension, indicating complex tearing. Cruciate ligaments: The anterior and posterior cruciate ligaments appear intact. Mild T2 signal elevation along the course of the anterior cruciate ligament. Medial structures: The medial collateral ligament appears intact. Visualized portions of the pes anserinus tendons appear normal. There is a small amount of medial bursal fluid. Lateral structures: The lateral collateral ligament, long and short heads of the biceps femoris tendon appear intact. The popliteus tendon appears normal. Iliotibial band appears normal. Anterior structures: The quadriceps and patellar tendons appear intact. Patellar alignment is normal. No femoral trochlear dysplasia or ventral trochlear prominence. No edema in the infrapatellar fat pad. Bones and cartilage: No bone marrow contusions or fractures. There is moderate ill-defined degenerative marrow edema within the weight-bearing aspects of the medial femoral condyle and medial tibial plateau. There is moderate tricompartmental periarticular osteophyte formation. Severe articular cartilage loss diffusely overlies the weight-bearing aspects of the medial femoral condyle and medial tibial plateau. Mild articular cartilage loss diffusely overlies the weight-bearing aspects of the lateral femoral condyle and lateral tibial plateau. Severe articular cartilage loss overlies the central femoral trochlea superiorly superimposed on mild diffuse articular cartilage loss. Severe articular cartilage loss overlies the patellar apex and inferior aspect of the lateral patellar facet. Joint space: There is a moderate knee joint effusion and a small Carlin's cyst. Normal appearing synovial plicae are incidentally noted. IMPRESSION: 1. Tricompartmental osteoarthritis with associated articular cartilage loss. 2. Complex tearing of the medial and lateral meniscus. 3. Knee joint effusion and Carlin's cyst. 4. Mild medial bursitis. 5. Myxoid degeneration of the anterior cruciate ligament. Dictated by: Darrell Gaytan M.D. on 02/04/2020 at 13:01 Approved by: Darrell Gaytan M.D. on 02/04/2020 at 13:05
== END ==
PROVIDERS: PCP Family Medicine; Referring Provider Family Medicine; Visit Provider Orthopaedic Surgery
DX: M25.562 Pain in left knee (principal); M17.12 Unilateral primary osteoarthritis, left knee; S83.272A Complex tear of lateral meniscus, current injury, left knee, initial encounter; S83.232A Complex tear of medial meniscus, current injury, left knee, initial encounter; M25.462 Effusion, left knee; M71.22 Synovial cyst of popliteal space [Baker], left knee; M71.562 Other bursitis, not elsewhere classified, left knee
CPT/HCPCS: 73721

== ENCOUNTER → 2020-02-24 09:35 | Outpatient (CLI) | payer MEDICARE, OTHER, SELFPAY ==
[2019-01-03 14:31] VITALS: BMI 25.2
[2020-02-26 07:37] LABS: COVID19 Sendout Not Detected (Not Detect)
== END ==
PROVIDERS: PCP Family Medicine; Visit Provider Nurse Practitioner
DX: Z11.59 Encounter for screening for other viral diseases (principal)
CPT/HCPCS: 87635

== ENCOUNTER 2020-02-27 08:16 | Day surgery (SDC) | payer MEDICARE, OTHER, SELFPAY ==
[2019-01-03 14:31] VITALS: BMI 25.2
[2020-02-19 13:54] VITALS: BMI 26.4
[2020-02-27] VITALS (11 sets, daily range): BP systolic 126–156; BP diastolic 77–95; PULSE 57–70; RESP 15–19; TEMP 36.1–37; O2SAT 92–100; BMI 26.8
--- NOTE | 2020-02-27 08:14 | DI.RAD.S_ITS ---
PROCEDURE: XR KNEE LT 1TO2V INDICATIONS: left total knee TECHNIQUE: 2 view(s) of the knee acquired. COMPARISON: [facility], CR, XR KNEE RT 1TO2V, 01/03/2019, 13:21. [facility], CR, XR KNEE 1 OR 2 VIEWS LEFT, 01/27/2020, 9:38. [facility], CR, XR KNEE ARTHRITIC SERIES RT, 01/01/2020, 10:06. FINDINGS: Bones: Patient is status post knee joint arthroplasty. Hardware components are in expected positions. Visualized bony structures are intact. Soft tissues: Overlying postoperative changes are noted. IMPRESSION: Expected immediate postoperative appearance of left knee arthroplasty. Dictated by: Gonzalo Wilcox RR Interpreted: Arnold Li MD on 02/27/2020 at 13:32 Approved by: Arnold Li M.D. on 02/27/2020 at 15:53
[2020-02-27] MEDS: ACETAMINOPHEN 325 MG TABLET 975 MG PO (08:51)
[2020-02-27] MEDS: LACTATED RINGERS 1,000 ML 42 ML IV ×2 (08:51→12:06)
[2020-02-27] MEDS: VANCOMYCIN 1,000 MG/200 ML PIGGYBACK 200 MG IV (09:31)
--- NOTE | 2020-02-27 10:24 | PM.PREOP ---
Pre-operative Note COVID-19 COVID-19 status: Negative Interval Note History & Physical reviewed/Exam performed by Physician: Yes Changes to H&P: No H&P completed within 30 days and has changed as indicated here:: Cor regular rate and rhythm, lungs clear, abdomen benign, left knee pain with range of motion restricted range of motion
--- NOTE | 2020-02-27 10:25 | P.OP_ITS ---
Operative Date/Time/Diagnoses Date of procedure: 02/27/20 Time of procedure: 10:58 Pre-op diagnosis: Left knee OA Post-op diagnosis: same Procedure & Clinicians Procedure: Left total knee arthroplasty Same procedure as scheduled: Yes Indications: The patient has had progressively worsening left knee pain with radiographic changes consistent with arthritis. Non-operative management has failed and the patient has requested total knee replacement. The risks, benefits and alternatives to surgery were discussed with the patient prior to proceeding. Risks discussed included, but were not limited to, failure to relieve pain, stiffness, infection, nerve damage, deep venous thrombosis, pulmonary embolism, stroke, coma, heart attack, permanent paralysis and , as well as the potential need for eventual revision of the prosthetic. Surgeon: Radha Dsouza Machine Ii Engraver: Paul Ireland Anesthesia Type: General and Spinal Operative Notes Findings: Severe left knee osteoarthritis, good stability Closure Type: primary Specimen(s): none sent Prosthetic devices, grafts, tissues, transplants, or devices: Dsouza and Nephew Isidroney BCS 2 size 5 femur, size 4 tibia, +10 poly, 35 by 7-1/2 mm patella Applied: drain(s) Estimated Blood Loss (mL): 250 Tourniquet time (min): 65 Procedure in detail: The patient was seen in the pre-operative area, where the patient identified the left knee as the operative site and this was marked with my initials. The patient received pre-operative antibiotics, and was taken to the operating room and placed on the operative table in the supine position. After satisfactory anesthesia, a design technician out was performed. The left leg was encircled with a tourniquet about the proximal thigh, and the leg was prepared from the toes to the tourniquet with ChloroPrep in the usual fashion and draped through sterile drapes. The leg was elevated and exsanguinated with Eschmark bandage and the tourniquet inflated to [250] mmHg pressure. The knee was approached through an approximately 18 cm incision centered over the patella and carried into the knee through a medial parapatellar arthrotomy. A portion of the medial and lateral meniscus was resected. Soft tissue was carefully mobilized around the patella the patella was measured with a caliper. Bone was resected from the patella and the patellar height was reconstituted with up an appropriate sized patellar component. A cover was then placed on the patella. A small amount of additional medial and lateral meniscus was resected. The visionare guide fit well to the distal femur. It looked like an appropriate distal femoral cut and the cut was made without difficulty. The rotation was assessed and the appropriate size femoral guide was placed on the distal femur and finishing cuts were made. There is no evidence of notching. The anterior, posterior and chamfer cuts were then made. The posterior osteophytes and soft tissues were then removed. The posterior capsule was injected with part of a m ixture of 60 ml 0.25% Marcaine mixed with 20 ml Exparel for post operative pain control. The remainder of this mixture was injected into the capsule and subcutaneous tissues during cement curing. The tibia was prepared and the visionaire guide fit well to the distal tibia. The rotation was assessed. The patient was placed in extension residual medial and lateral meniscus as well as any residual bone was carefully resected. [No] additional tibia was resected. Hemostasis was achieved especially posteriorly. Additional local was injected into the posterior capsule. The extension gap was assessed and additional releases for gap balancing were performed as necessary. It was checked with the gap quality control lab technician. The femoral component was trial was placed and the notch was finished. Trial tibial and femoral components were then placed and the knee placed through a range of motion. Range of motion was [0-130], with good stability throughout the range. The trials were then removed, and the tibia was finished. The bone was prepared with pulsatile lavage, and dried with a sponge. Cement was applied and the final prosthetics placed. Excess cement was removed during and after cement curing. A brief Betadine soak was performed. After confirming there was no extruded cement posteriorly, the final tibial insert was placed. The knee was copiously irrigated and the tourniquet deflated. Hemostasis was obtained with the bovie cautery. A drain was placed and brought out superolaterally. The capsule was closed with interrupted vicryl suture. The subcutaneous layer was closed with barbed sutures, and the skin with a running 3-0 V-Lock suture and Surgical glue. An Aquacel Ag dressing was applied and the patient was taken to recovery having tolerated the procedure well. Complications: none Post-operative Condition: stable Disposition: Acute Care Plan for aftercare: The patient will be maintained on a standard total knee replacement protocol with weight bearing as tolerated. The patient will receive aspirin and sequential compression devices for DVT prophylaxis. The patient will be discharged home when safe for the home environment.
[2020-02-27] MEDS: CEFAZOLIN 2 GM/100 ML FROZ.PIGGY IV ×2 (10:44→20:06)
[2020-02-27] MEDS: TRANEXAMIC ACID 1,000 MG VIAL 1000 MG INJ ×2 (11:04→12:28)
[2020-02-27] MEDS: BUPIVACAINE LIPOSOME 266 MG/20 ML VIAL INJ (11:29)
[2020-02-27] MEDS: BUPIVACAINE 0.25% W/ EPI 30 ML VIAL 60 ML INJ (11:30)
[2020-02-27] MEDS: ACETAMINOPHEN 325 MG TABLET 650 MG PO ×2 (14:14→20:05)
[2020-02-27] MEDS: LACTATED RINGERS 1,000 ML 100 ML IV (14:15)
--- NOTE | 2020-02-27 14:56 | PC.NURSE ---
Patient received from PACU post-op to room 203, approx. 1340, VSS. awake and talkative, denies pain. Hemovac drain in place with dressing and HANS wrap to left knee, CDI. Drain clamped for 2 hours per order to be unclamped at 1500. Patient oriented to room and call light, call light placed within reach.
--- NOTE | 2020-02-27 16:50 | PT.IIE ---
Current Diagnoses Unilateral primary osteoarthritis, left knee (02/27/20) Surgery Performed Operation Date: 02/27/20 10:45 Actual Procedures p Total Knee Arthroplasty(Left) - Radha Dsouza MD Surgical History (Last Updated 02/19/20 @ 14:37 by Nai Teague, RN) History of arthroplasty of right knee (Acute 01/03/19) Hx of bilateral cataract extraction (Acute ~2019) Medical History (Last Updated 12/27/18 @ 09:13 by Nai Teague RN) Anxiety about health (Acute) HTN (hypertension) (Acute) Hx of vaginal delivery (Acute) Seasonal allergies (Acute) Thin skin (Acute) Physical Therapy Inpatient Evaluation/Re-Eval M1 PT/OT-IP Prior Functional Status Start: 02/27/20 17:34 Freq: NEEDED Status: Active Protocol: Document 02/27/20 16:50 AB (Rec: 02/27/20 17:46 AB [email or web address]) Medical Review Prior Functional Status Medical History Reviewed Yes Communication able to make needs known Mobility and Gait pt stated that she is independent with all mobilities and ambulation without AD Social History Household Members none Living Arrangements Apartment/Condo Number of Floors (Floors) One Floor Number of Stairs To Enter/Railing? no steps to enter Home Environment Tub/Shower Home Equipment Front Wheel Walker,Bedside Commode Additional Social History Comment daughter will stay and assist pt for 10 days M2 PT-IP Current Condition Start: 02/27/20 17:34 Freq: NEEDED Status: Active Protocol: Document 02/27/20 16:50 AB (Rec: 02/27/20 17:46 AB [email or web address]) Physical Therapy Current Condition Current Condition Evaluation Date 02/27/20 Treatment Diagnosis s/p L TKA; difficulty in walking Onset Date 02/27/20 Weight Bearing Status Weight Bearing Status Weight Bear as Tolerated Allowed Weight Bearing Amount (enter % LLE WBAT or #) (%) M3 PT-IP Subjective Start: 02/27/20 17:34 Freq: NEEDED Status: Active Protocol: Document 02/27/20 16:50 AB (Rec: 02/27/20 17:46 AB [email or web address]) Subjective Physical Therapy Visit Type Type Initial Evaluation Visit Start Time 16:50 Visit Stop Time 17:23 Total Visit Minutes 33 Number of MANAGER BANQUET Visits 0 Physical Therapy Visit Comments Patient Comments pt is agreeable to do PT Therapy Pain Assessment Pain Present Pain Present Denied Pain M4 PT-IP Mobility and Gait Start: 02/27/20 17:34 Freq: NEEDED Status: Active Protocol: Document 02/27/20 16:50 AB (Rec: 02/27/20 17:46 AB [id number]) PT-Bed Mobility Assessment Supine to Sit Supine to Sit Standby Assistance PT-Transfer Assessment Sit to and From Stand Sit to and from Stand Moderate Assistance,1 Person Assistance,Use of Upper Extremities Equipment Transfer Assistive Device Gait Belt,Front Wheeled Walker Orthotic/Prosthetic Devices or Brace: No Transfers Transfer Destination Toilet Transfer Technique ambulated using FWW Transfer Ability Level of Assist Minimal Assistance,1 Person Assistance,Use of Upper Extremities Comments Mobility Comments BP: 134/80 completed supine to sit SBA. pt was able to sit on EOB SBA. pt can be impulsive. completed sit to stand mod A and cues. ambulated to the toilet using FWW min A. pt required mod A for sit to stand from the toilet and was able to maintain standing mod A while assisted with brief management . pt ambulated to the chair using fWW min A. positioned pt on chair. call light and table placed within reach. set up pt with her dinner. Gait Assessment Gait Gait Assistance Required: Minimum Assistance Distance (Feet) 12 Able to Maintain Weight Bearing Status Yes During Gait Assistive Devices Assistive Device None,Front Wheeled Walker Orthotic/Prosthetic Devices or Brace: No Gait Deviations General Gait Pattern Antalgic,Decreased Stride Length,Decreased Feet Clearance Factors Limiting Gait Function Factors Limiting Gait Function Decreased Activity Tolerance, Decreased Strength,Difficulty Following Directions,Poor Balance,Poor Safety Awareness PT-Balance Assessment Sitting Balance and Reactions Static Sitting Balance Ability Normal Dynamic Sitting Balance Ability Good Standing Balance and Reactions Static Standing Balance Ability Fair Dynamic Standing Balance Ability Fair Device Used FWW M5 PT-IP Objective Assessments Start: 02/27/20 17:34 Freq: NEEDED Status: Active Protocol: Document 02/27/20 16:50 AB (Rec: 02/27/20 17:46 AB [id number]) Orientation Orientation/Cognition Level of Alertness Alert Orientation Name,Place,Situation Language Function Ability No Deficits Noted Safety Awareness Decreased Safety Awareness Gross Range of Motion Lower Extremity ROM Impairments L knee flexion: 90 deg Strength Lower Extremity Strength Assessment Left Impaired Hip 4/5 Knee 4-/5 Coordination Assessment Gross Coordination Gross Coordination WNL Sensation Assessment Sensation Sensation Description Numbness Comments Sensation Comments still has numbness on B buttocks M6 PT-IP Treatment Start: 02/27/20 17:34 Freq: NEEDED Status: Active Protocol: Document 02/27/20 16:50 AB (Rec: 02/27/20 17:46 AB [email or web address]) Physical Therapy Treatment Education Education Provided Precautions,Weight Bearing Status,Post-Op Packet,Safety M7 PT-IP Assessment and Plan Start: 02/27/20 17:34 Freq: NEEDED Status: Active Protocol: Document 02/27/20 16:50 AB (Rec: 02/27/20 17:46 AB [email or web address]) PT Summary Assessment and Plan Potential Rehabilitation Potential Good Status of Condition at Evaluation Evolving Summary Impairments Pain,ROM,Strength,Balance, Sensation,Bed Mobility, Transfers,Gait,Activity Tolerance Assessment Summary pt requiring mod A with transfer and min A with ambulation using FWW. pt s/p L TKA and just had surgery this morning. pt plans to go home with her daughter to assist her and is set up for outpt PT. will conduct caregiver training if appropriate. will continue to assess progress for safe d/c. Goals Bed Mobility Goal Independent Transfer Goal Independent,Crutches Gait Goal Independent,Front Wheel Walker Gait Distance 200 Days to Meet Goals 3 Frequency of Treatment Frequency Of Treatment Twice a Day Treatment Plan Physical Therapy Treatment Plan Bed Mobility Training,Transfer Training,Gait Training, Therapeutic Exercise,Balance Retraining,Post Op Education, Discharge Planning,Hot or Cold Pack,Neuromuscular Re-ed, Coordination Retraining,Manual Therapy Recommendations To Nursing Amount of Assist Needed 1 Person Assist Discharge Recommendations PT Discharge Recommendations Home with Assistance, Outpatient PT Transportation Needs at Discharge Private Vehicle
[2020-02-27] MEDS: ASPIRIN EC 81 MG TABLET PO (20:05)
[2020-02-27] MEDS: DOCUSATE 100 MG CAPSULE PO (20:05)
[2020-02-27] MEDS: atenoloL 25 MG TABLET PO (20:05)
[2020-02-28 00:05] VITALS: BP 133/89; PULSE 74; RESP 16; TEMP 36.7; O2SAT 92
[2020-02-28] MEDS: LACTATED RINGERS 1,000 ML 100 ML IV (00:44)
[2020-02-28] MEDS: CEFAZOLIN 2 GM/100 ML FROZ.PIGGY IV (02:33)
[2020-02-28] MEDS: DOCUSATE 100 MG CAPSULE PO (06:25)
[2020-02-28] MEDS: atenoloL 25 MG TABLET PO (06:25)
[2020-02-28] MEDS: ASPIRIN EC 81 MG TABLET PO (06:25)
[2020-02-28] MEDS: ACETAMINOPHEN 325 MG TABLET 650 MG PO (06:26)
[2020-02-28 06:27] LABS: Hematocrit 34.8 % (36-46); Hemoglobin 11.7 g/dL (12.0-16.0)
--- NOTE | 2020-02-28 07:17 | PM.DS.1 ---
History of Present Illness History of Present Illness Date Patient Seen: 02/28/20 Time Patient Seen: 07:17 Chief complaint: Left Total Knee Arthroplasty *OPB* Narrative: Please see HPI previously recorded in the chart. Discharge Providers Provider Discharge Date: 02/28/20 Primary care physician: Alejandro Negron DO Consults: 02/27/20 08:14 Consult to Anesthesiology Routine Comment: Consulting Provider: Anesthesiologist Reason for consultation: Regional block for post operative pain control 02/27/20 13:48 Consult to Discharge Planning Routine Comment: Consult to Physical Therapy Evaluate & Treat Comment: Physician Instructions: postop TKA protocol Consult to Respiratory Therapy Evaluate & Treat Comment: Physician Instructions: Evaluate and treat Discharge provider: Jenny Angelo PA-C Summary Hospital Course Discharge Diagnosis: s/p left TKA Hospital Course: The patient has had progressively worsening left knee pain with radiographic changes consistent with arthritis. Non-operative management has failed and the patient has requested total knee replacement. The risks, benefits and alternatives to surgery were discussed with the patient prior to proceeding. Risks discussed included, but were not limited to, failure to relieve pain, stiffness, infection, nerve damage, deep venous thrombosis, pulmonary embolism, stroke, coma, heart attack, permanent paralysis and , as well as the potential need for eventual revision of the prosthetic. She was taken to the operating room and underwent a left TKA which she tolerated well without complications. She was transferred to the acute care floor where she has been progressing well postoperatively. Pain has been managed with Tylenol. She has mobilized about the room with PT. Will continue to mobilize with PT up until discharge. ASA for DVT prophylaxis. Daughter is present and available as caregiver. Tolerating a diet and voiding appropriately. She is stable for discharge to home later today pending final PT eval. Status at Discharge Cognitive/behavioral status at discharge: oriented Functional status at discharge: uses cane/walker Overall status at discharge: patient is progressing back to baseline Exam Vital Signs (past 8 hours): - 02/28/20 00:05 Temperature 98.0 F Pulse Rate 74 Respiratory Rate 16 Blood Pressure 133/89 Pulse Oximetry 92 Oxygen Delivery Method Room Air Oxygen Flow Rate 0 Narrative Exam Narrative: Pleasant 74 year old female resting in bed, AAO x3. Dressing in place over left knee is CDI. Patient able to flex and extend the ankle, 5/5 lower extremity. Calves soft, compressible. 2+ DP pulse. Objective Labs Result Diagrams: 02/28/20 06:13 Labs: Laboratory Results - last 24 hr 02/28/20 06:13 Hgb 11.7 L Hct 34.8 L Discharge Plan Discharge Plan Patient Disposition: Home Discharge comment: Discharge home after cleared by physical therapy Discharge Med Rec/Prescriptions Prescriptions: New aspirin 81 mg Tablet,Delayed Release (Dr/Ec) 81 mg PO BID Qty: 40 RF: 0 Continued atenolol 50 mg Tablet 25 mg PO BID RF: 0 acetaminophen 325 mg tablet 325 mg PO Q4H PRN (Reason: Pain) RF: 0 Discharge Orders: Discharge (Order); Ordered 02/28/20 Ordered By: Jenny Angelo Provider Discharge Instructions Diet: Diet as Tolerated Activity: Walk multiple times a day. Cold/Heat Therapy: Use ice on her knee multiple times a day. Skin/Wound/Dressing Care Report to your healthcare provider any signs of infection, such as:: chills, fever, night sweats, increased pain, unusual drainage and unusual redness Dressing: Keep dressing on. Okay to shower with dressing. Visit Report/Discharge Packet Instructions: DI for Knee Replacement Stand Alone Forms: Surgery Discharge Discharge Data Primary Care Provider: Alejandro Negron Attending Provider: Radha Dsouza
[2020-02-28 07:50] VITALS: BP 129/84; PULSE 68; RESP 19; TEMP 36.7; O2SAT 98
--- NOTE | 2020-02-28 09:20 | PT.IPTN ---
Current Diagnoses Unilateral primary osteoarthritis, left knee (02/27/20) Surgery Performed Operation Date: 02/27/20 10:45 Actual Procedures p Total Knee Arthroplasty(Left) - Radha Dsouza MD Physical Therapy Treatment Note M2 PT-IP Current Condition Start: 02/27/20 17:34 Freq: NEEDED Status: Discharge Protocol: Document 02/27/20 16:50 AB (Rec: 02/27/20 17:46 AB [email or web address]) Physical Therapy Current Condition Current Condition Evaluation Date 02/27/20 Treatment Diagnosis s/p L TKA; difficulty in walking Onset Date 02/27/20 Weight Bearing Status Weight Bearing Status Weight Bear as Tolerated Allowed Weight Bearing Amount (enter % LLE WBAT or #) (%) M3 PT-IP Subjective Start: 02/27/20 17:34 Freq: NEEDED Status: Discharge Protocol: Document 02/28/20 09:20 AB (Rec: 02/28/20 12:38 AB [email or web address]) Subjective Physical Therapy Visit Type Type Treatment Note Visit Start Time 09:20 Visit Stop Time 09:46 Total Visit Minutes 26 Number of MANUFACTURING TEACHER Visits 0 Physical Therapy Visit Comments Patient Comments pt is agreeable to do PT Therapy Pain Assessment Pain Present Pain Present Denied Pain Location Right Knee Scale Used stated soreness but not pain M4 PT-IP Mobility and Gait Start: 02/27/20 17:34 Freq: NEEDED Status: Discharge Protocol: Document 02/28/20 09:20 AB (Rec: 02/28/20 12:38 AB [email or web address]) PT-Bed Mobility Assessment Supine to Sit Supine to Sit Standby Assistance Sit to Supine Sit to Supine Standby Assistance PT-Transfer Assessment Sit to and From Stand Sit to and from Stand Standby Assistance Equipment Transfer Assistive Device Gait Belt,Front Wheeled Walker Orthotic/Prosthetic Devices or Brace: No Transfers Transfer Destination Bed Transfer Technique ambulated using FWW Transfer Ability Level of Assist Standby Assistance Comments Mobility Comments completed sit to stand from chair SBA and ambulated in hallway ~ 200 ft using FWW SBA . pt ambulated to the bed and completed sit<>supine SBA. pt completed transfer to chair SBA using FWW. positioned pt on chair. call light and table placed within reach. Gait Assessment Gait Gait Assistance Required: Standby Assistance Distance (Feet) 200 Able to Maintain Weight Bearing Status Yes During Gait Assistive Devices Assistive Device Gait Belt,Front Wheeled Walker Gait Deviations General Gait Pattern Antalgic,Decreased Stride Length,Decreased Feet Clearance Factors Limiting Gait Function Factors Limiting Gait Function Decreased Activity Tolerance, Decreased Strength,Limited Range of Motion,Poor Balance M5 PT-IP Objective Assessments Start: 02/27/20 17:34 Freq: NEEDED Status: Discharge Protocol: Document 02/27/20 16:50 AB (Rec: 02/27/20 17:46 AB [email or web address]) Orientation Orientation/Cognition Level of Alertness Alert Orientation Name,Place,Situation Language Function Ability No Deficits Noted Safety Awareness Decreased Safety Awareness Gross Range of Motion Lower Extremity ROM Impairments L knee flexion: 90 deg Strength Lower Extremity Strength Assessment Left Impaired Hip 4/5 Knee 4-/5 Coordination Assessment Gross Coordination Gross Coordination WNL Sensation Assessment Sensation Sensation Description Numbness Comments Sensation Comments still has numbness on B buttocks M6 PT-IP Treatment Start: 02/27/20 17:34 Freq: NEEDED Status: Discharge Protocol: Document 02/28/20 09:20 AB (Rec: 02/28/20 12:38 AB [email or web address]) Physical Therapy Treatment Education Education Provided Safety M7 PT-IP Assessment and Plan Start: 02/27/20 17:34 Freq: NEEDED Status: Discharge Protocol: Document 02/28/20 09:20 AB (Rec: 02/28/20 12:38 [email or web address] Summary Assessment and Plan Potential Rehabilitation Potential Good Summary Impairments Pain,ROM,Strength,Balance,Bed Mobility,Transfers,Gait, Activity Tolerance Progress Towards Goals Progressing Toward Goals Assessment Summary pt requiring SBA with mobility and plans to go home with her daughter to assist her. pt may go home when medically stable. Goals Bed Mobility Goal Independent Transfer Goal Independent,Front Wheeled Walker Gait Goal Independent,Front Wheel Walker Gait Distance 200 Days to Meet Goals 3 Frequency of Treatment Frequency Of Treatment Twice a Day Treatment Plan Physical Therapy Treatment Plan Bed Mobility Training,Transfer Training,Gait Training, Therapeutic Exercise,Balance Retraining,Post Op Education, Discharge Planning,Hot or Cold Pack,Neuromuscular Re-ed, Coordination Retraining,Manual Therapy Recommendations To Nursing Amount of Assist Needed 1 Person Assist Discharge Recommendations PT Discharge Recommendations Home with Assistance, Outpatient PT Transportation Needs at Discharge Private Vehicle
--- NOTE | 2020-02-28 10:03 | PC.NURSE ---
Day shift note: Patient discharged home as ordered and cleared by PT. Discharge given to both patient and daughter, discussed importance of F/U with Ortho, new ASA Rx, and home activity, and dressing care. Both verbalized understanding of instructions. Home via private vehicle.
--- NOTE | 2020-02-28 11:46 | CM.DANOTE ---
Discharge Planning/Care Management DCP: assessment: case received, EMRf reviewed. Discussed in Team Rounds. PT noted that pt was to be seen again today and would be ready for d/c to home. A d/c order had been placed early this morning by Dr. Dsouza. Pt is a 74 year old female who admitted for a scheduled L TKA yesterday. Payer: Medicare and [employer]. A check in now shows that pt was cleared for d/c and went home in company of family before Rounding had ended. Her daughter Nikki will be with her to assist as she recovers. No d/c concerns were identified by the care team members. CM Discharge Assessment Start: 02/28/20 11:45 Freq: Status: Active Protocol: Document 02/28/20 11:45 ITV (Rec: 02/28/20 11:45 ITV [id number]) Discharge Planning Assessment Advance Directives? No History Provided By Medical Record Prior Living Arrangements Apartment/Condo Household Members none Review Status In Process Pre-Anesthesia Assessment Start: 02/19/20 13:54 Freq: Status: Discharge Protocol: Document 02/19/20 13:54 CAB (Rec: 02/19/20 13:55 CAB [id number]) Pre-Anesthesia Assessment Patient Information Reviewed Via Phone Assessment Assessment Completed With Patient Diagnostic Results BMP/CMP,CBC,EKG,Urinalysis Comment Labs/EKG @ 01/27/20 COVID screen @ 02/24/20 Primary Care Provider Alejandro Negron Seen Specialist in Last 12 Months Yes Specialist Seen Orthopedist Primary Language Kosovan Preferred Language Kosovan Liquor Maker Required No Height 172.72 cm Weight 78.925 kg Body Mass Index (BMI) 26.4 Hearing Ability Normal Visual Impairment No Limitations Visual Assist None Dentition Type Teeth, Natural Present Barriers to Learning None Other Aids No Hx Anesthesia Reactions No Hx Family Anesthesia Reaction No Hx Malignant Hyperthermia No Hx Blood Transfusions No Anesthesia Review Requested No Scouts No alcohol intake never Smoking Status Never smoker Substance Use Type does not use Pain Present Pain Reported Musculoskeletal Symptoms Abnormal Gait,Difficulty Walking,Joint Pain History of Falling (Recent or History of No ) Patient is completely paralyzed or No completely immobile Mental Status Oriented to own ability Is patient on oxygen? No Does patient have JIMENES/SOB No Hx Sleep Apnea No Currently Taking a Beta Hector Yes: Atenolol Can You Climb a Flight of Stairs Without Yes SOB Hx Chest Pain No Hx SOB No Hx Syncope or Dizziness No Anti-Coagulant Therapy No Has a [employer] Executive Director No Cardiac Testing No Hx Pacemaker/ICD No Pacemaker Rep Required? No Cardiac Clearance Received Not Applicable Diet Type At Home Regular,Vegetarian dysphagia No Urinary Catheter Present No Hx Urinary Self Catheterization No Diabetes No Patient No Lactating No Hx Drug Resistant Organism No Presence of External or Internal Medical Yes: Bilateral eye lens, right Devices knee prosthesis Have you had any close contact with No someone diagnosed with COVID-19? Marital Status Lives With none Prior Living Arrangements Apartment/Condo Support System Child/Children Does the Patient Have Assistance After Yes: Daughter will stay at [facility] to assist w/care Patient Discharge Plan Description Return Home Feels Safe in Current Environment Yes Been Physically Hurt or Threatened By a No Person in Current Environment Do you have thoughts of harming yourself None or others? Are you currently considering suicide? No Do you have a plan to hurt yourself or No Plan others? Do You Have Any Spiritual Beliefs That No May Affect Your HC Choices? Do You Have Any Cultural Practices That No May Affect Your HC Choices? Who Can We Speak to About Patient's Care Family, friends Identifying Code for Release of Patient Declines to issue Information Health Care Proxy/Next of Kin Nikki (daughter) Health Care Proxy Emergency Contact Name Nikki (daughter) Emergency Contact Advance Directives? No Power of Cuff Maker No PAC Instructions Do not shave/clip surgical site,Durable medical equipment ,Medications to take/avoid, Nasal antibiotic,No ETOH/ petroleum product on skin DOS, NPO,Pre-surgical wash,Sturdy shoes/comfortable clothes,Do not bring valuables and remove jewelry
== END 2020-02-28 10:10 | disposition home or self-care (01) ==
LOC: OR 08:21 → AC 12:37
PROVIDERS: PCP Family Medicine; Referring Provider Family Medicine; Visit Provider Orthopaedic Surgery
PROC: 0SRD0JZ Replacement of Left Knee Joint with Synthetic Substitute, Open Approach (ICD-10-PCS; CPT 27447; principal; 2020-02-27 10:45)
DX: M17.12 Unilateral primary osteoarthritis, left knee (principal); J45.909 Unspecified asthma, uncomplicated
CPT/HCPCS: 27447; 73560; 85014; 85018; 97116; 97162; C1776; C9290; J0690; J1100; J2250; J2274; J2405; J2704; J3010

== ENCOUNTER 2024-01-27 20:47 | Emergency (ER) | payer MEDICARE, OTHER, SELFPAY ==
[2020-02-27 13:50] VITALS: BMI 26.8
[2024-01-27] VITALS (21 sets, daily range): BP systolic 152–214; BP diastolic 84–134; PULSE 65–104; RESP 16–40; TEMP 36.5–37.3; O2SAT 95–99; BMI 26.1
--- NOTE | 2024-01-27 21:25 | DI.RAD.S_ITS ---
PROCEDURE: XR CHEST 1V INDICATIONS: chest pain TECHNIQUE: One view of the chest was acquired. COMPARISON: None. FINDINGS: Surgical changes and devices: None. Lungs and pleura: Lungs are clear. No pleural effusions or pneumothorax. Mediastinum: Mediastinal contours appear normal. Heart size is normal. Bones and chest wall: No suspicious bony lesions. Overlying soft tissues appear unremarkable. IMPRESSION: No acute cardiopulmonary abnormality is seen. Dictated by: Oswald Ayala M.D. on 01/27/2024 at 22:20 Approved by: Oswald Ayala M.D. on 01/27/2024 at 22:20
--- NOTE | 2024-01-27 21:29 | ED.GENADULT ---
HPI - General Adult General Chief complaint: Hypertension Stated complaint: HBP Time Seen by Provider: 01/27/24 21:24 Source: patient Mode of arrival: Family Vehicle History of Present Illness HPI narrative: 78-year-old female with history of hypertension, usually takes atenolol each morning, no recent missed doses, has had elevated blood pressures at home today, took 1st dose of an eqyq-gmz-rzmkfrn joint support medication called 1[employer]ility, first single oral dose. She has had no shortness of breath or wheezing, no rashes or itching, no hives, no swelling of lip or face or tongue. She has no chest discomfort. She has not feel shaky. She has not use any drugs or alcohol. She has not feel like she is having any stroke symptoms, does not have headache or neck pain, no photophobia, no weakness to face arm or leg, no numbness to face arm or leg. Denies similar symptoms before, but has not taken this yels-bcf-nerjwfh medication before Related Data Home Medications Medication Instructions Recorded Confirmed atenolol 50 mg tablet 50 mg PO DAILY 12/27/18 02/27/20 acetaminophen 325 mg tablet 325 mg PO Q4H PRN Pain 02/19/20 02/27/20 Previous Rx's Medication Instructions Recorded aspirin 81 mg tablet,delayed 81 mg PO BID #40 tabs 02/28/20 release cefdinir 300 mg capsule 300 mg PO BID 10 days #20 caps 01/27/24 Allergies Allergy/AdvReac Type Severity Reaction Status Date / Time No Known Drug Allergies Allergy Verified 01/27/24 20:59 Review of Systems Review of Systems Narrative: see HPI Patient History Medical History (Updated 01/27/24 @ 23:17 by Sebastian Covington MD) Anxiety about health Thin skin HTN (hypertension) Seasonal allergies Hx of vaginal delivery Surgical History (Updated 02/19/20 @ 14:37 by Nai Teague RN) History of arthroplasty of right knee (01/03/19) Hx of bilateral cataract extraction (~2018) Social History household members: none Smoking Status: Never smoker alcohol intake: never Smoking Status: Never smoker Substance Use Type: does not use Exam Narrative Exam Narrative: GENERAL: Well-developed patient, in mild distress. HEAD: Atraumatic. Normocephalic. EYES: Pupils equal round and reactive. Extraocular motions intact. No scleral icterus. No injection or drainage. ENT: Nose without bleeding, purulent drainage. Throat without erythema, tonsillar hypertrophy or exudate. Airway patent. NECK: Trachea midline. Non tender CARDIOVASCULAR: Regular rate and rhythm without murmurs, gallops, or rubs. RESPIRATORY: Clear to auscultation. Breath sounds equal bilaterally. No wheezes, rales, or rhonchi. GASTROINTESTINAL: Abdomen soft, non-tender, nondistended. EXTREMITIES: No edema or joint tenderness. BACK: Nontender without deformity or crepitance. No flank tenderness. NEURO: AOx3. SKIN: No rash or erythema of visible areas Initial Vital Signs Initial Vital Signs: Vital Signs Temperature 97.7 F 01/27/24 20:48 Pulse Rate 89 01/27/24 20:48 Respiratory Rate 16 01/27/24 20:48 Blood Pressure 214/133 H 01/27/24 20:48 Pulse Oximetry 97 01/27/24 20:48 Oxygen Delivery Method Room Air 01/27/24 20:48 Course Orders Ordered: ED Orders 01/27/24 21:25 XR chest 1V Stat EKG-12 Lead Stat 01/27/24 21:40 Complete Blood Count AUTO DIFF Stat Comprehensive Metabolic Panel Stat Troponin & CK Cardiac Panel Stat 01/27/24 22:02 Urinalysis and Microscopic Stat Urine Culture Stat Discontinued Medications Amlodipine Besylate (Amlodipine 5 Mg Tablet) 5 mg PO NOW ONE Stop: 01/27/24 22:10 Last Admin: 01/27/24 22:20 Dose: 5 mg Documented By: Hydralazine HCl (Hydralazine 20 Mg/Ml Vial) 5 mg IV NOW ONE Stop: 01/27/24 21:26 Last Admin: 01/27/24 21:49 Dose: 5 mg Documented By: Hydralazine HCl (Hydralazine 20 Mg/Ml Vial) 10 mg IV NOW ONE Stop: 01/27/24 22:07 Last Admin: 01/27/24 22:13 Dose: 10 mg Documented By: Sodium Chloride (Normal Saline 0.9%) 1,000 mls @ 150 mls/hr IV CONT GERMÁN Last Infusion: 01/27/24 22:44 Dose: Infused Documented By: Admin: 01/27/24 21:49 Dose: 150 mls/hr Documented By: Ceftriaxone Sodium 1,000 mg/ (Sodium Chloride) 100 mls @ 200 mls/hr IV NOW ONE Stop: 01/27/24 22:25 Last Infusion: 01/27/24 23:13 Dose: Infused Documented By: Admin: 01/27/24 22:35 Dose: 200 mls/hr Documented By: Vital Signs Vital signs: Vital Signs - 8 hr 01/27/24 20:48 01/27/24 21:23 01/27/24 21:30 Temperature 97.7 F Pulse Rate 89 92 H 91 H Respiratory Rate 16 20 36 H Blood Pressure 214/133 H Pulse Oximetry 97 95 97 Oxygen Delivery Method Room Air 01/27/24 21:40 01/27/24 21:40 01/27/24 21:49 Temperature Pulse Rate 92 H 84 Respiratory Rate 27 H Blood Pressure 190/112 H 213/134 H Pulse Oximetry 98 Oxygen Delivery Method 01/27/24 21:50 01/27/24 21:50 01/27/24 21:58 Temperature Pulse Rate 84 96 H Respiratory Rate 33 H Blood Pressure 180/120 H 180/110 H Pulse Oximetry 98 Oxygen Delivery Method 01/27/24 21:59 01/27/24 22:05 01/27/24 22:07 Temperature Pulse Rate 93 H 101 H Respiratory Rate 25 H Blood Pressure 202/122 H 202/122 H Pulse Oximetry 98 Oxygen Delivery Method 01/27/24 22:09 01/27/24 22:09 01/27/24 22:15 Temperature Pulse Rate 102 H 95 H Respiratory Rate 27 H 19 Blood Pressure 182/102 H Pulse Oximetry 99 99 Oxygen Delivery Method 01/27/24 22:15 01/27/24 22:30 01/27/24 22:31 Temperature Pulse Rate 98 H 99 H Respiratory Rate 22 20 Blood Pressure 175/87 H Pulse Oximetry 98 98 Oxygen Delivery Method 01/27/24 22:31 01/27/24 22:45 01/27/24 22:45 Temperature Pulse Rate 98 H Respiratory Rate 19 Blood Pressure 159/90 H 152/86 H Pulse Oximetry 98 Oxygen Delivery Method 01/27/24 22:46 01/27/24 23:00 01/27/24 23:01 Temperature Pulse Rate 96 H 99 H 100 H Respiratory Rate 31 H 37 H Blood Pressure 152/86 H Pulse Oximetry 98 98 Oxygen Delivery Method 01/27/24 23:01 01/27/24 23:14 01/27/24 23:15 Temperature Pulse Rate 104 H Respiratory Rate 40 H Blood Pressure 156/93 H 156/87 H Pulse Oximetry 99 Oxygen Delivery Method 01/27/24 23:26 Temperature 99.1 F Pulse Rate 65 Respiratory Rate 18 Blood Pressure 155/84 H Pulse Oximetry 98 Oxygen Delivery Method Room Air Medical Decision Making Lab Data Lab results reviewed: Yes I reviewed the patient's lab results. 01/27/24 21:40 01/27/24 21:40 Labs: Lab Results 01/27/24 01/27/24 Range/Units 21:40 22:02 WBC 4.2 L (4.5-11.0) X10^3/uL RBC 4.80 (4.0-5.2) X10^6/uL Hgb 13.0 (12.0-16.0) g/dL Hct 38.9 (36-46) % MCV 81.1 (80-100) fL MCH 27.1 (26-34) PG MCHC 33.5 (30-36) % RDW 13.9 (11.6-14.8) % Plt Count 247 (150-400) X10^3/uL Neut % (Auto) 61.8 (50-75) % Lymph % (Auto) 23.6 L (25-40) % Casey % (Auto) 12.0 (3-14) % Eos % (Auto) 1.9 L (2-4) % Baso % (Auto) 0.7 (0-2) % Neut # (Auto) 2600 (2837-9080) /uL Lymph # (Auto) 1000 L (3773-6398) /uL Casey # (Auto) 500 (0-900) /uL Eos # (Auto) 100 (0-450) /uL Baso # (Auto) 0 (0-100) /uL Sodium 133 L (137-145) mmol/L Potassium 3.7 (3.4-5.1) mmol/L Chloride 102 (98-107) mmol/L Carbon Dioxide 23 (22-32) mmol/L BUN 10 (7-17) mg/dL Creatinine 0.62 (0.52-1.04) mg/dL Estimated GFR > 60 (>60) mL/min BUN/Creatinine Ratio 16.1 (6-22) Glucose 116 H (80-110) mg/dL Calcium 9.1 (8.4-10.2) mg/dL Total Bilirubin 0.8 (0.2-1.3) mg/dL AST 23 (14-36) IU/L ALT 18 (<35) IU/L Alkaline Phosphatase 64 (38-126) U/L Total Creatine Kinase 45 (30-135) U/L Troponin I < 0.012 (0.01-0.034) ng/mL Total Protein 7.7 (6.3-8.2) g/dL Albumin 4.1 (3.5-5.0) g/dL Globulin 3.6 (1.7-4.1) g/dL Albumin/Globulin Ratio 1.1 (1.0-2.8) Urine Color Yellow Urine Appearance Clear Urine pH 6.5 (4.5-8.0) Ur Specific [place] <=1.005 (1.000-1.035) Urine Protein Negative (Negative) Urine Glucose (UA) Negative (Negative) g/dL Urine Ketones Negative (NEGATIVE) Urine Occult Blood Negative (Negative) Urine Nitrate Negative (Negative) Urine Bilirubin Negative (NEGATIVE) Urine Urobilinogen 0.2 (0.2) E.U./dL Ur Leukocyte Esterase 2+ H (NEGATIVE) Urine RBC 0-1/hpf (0-5/HPF) Urine WBC 5-10/hpf H (0-5/HPF) Ur Squamous Epith Cells 0-1 /hpf (0-5/HPF) Urine Bacteria Many (>30) H (None) Ur Culture Indicated? Specimen cultured Vol Urine Centrifuged 10ml (spun) Imaging Data Chest x-ray: Radiologist's Impression: Close Chest X-Ray (Signed) Oswald Ayala - 01/27/24 Launch?[address] [address] XRay Report Signed Patient: Saida Renee MR#: [id number] : 1945 Acct:[id number] Age/Sex: 78 / F Date of Service: 01/27/24 Loc: ED Accession Number: [id number] Procedure: XR chest 1V Ordering Provider: Sebastian Covington MD PROCEDURE: XR CHEST 1V INDICATIONS: chest pain TECHNIQUE: One view of the chest was acquired. COMPARISON: None. FINDINGS: Surgical changes and devices: None. Lungs and pleura: Lungs are clear. No pleural effusions or pneumothorax. Mediastinum: Mediastinal contours appear normal. Heart size is normal. Bones and chest wall: No suspicious bony lesions. Overlying soft tissues appear unremarkable. IMPRESSION: No acute cardiopulmonary abnormality is seen. Dictated by: Oswald Ayala M.D. on 01/27/2024 at 22:20 Approved by: Oswald Ayala M.D. on 01/27/2024 at 22:20 ECG Data Attestation: I personally reviewed and interpreted this ECG as follows: Interpretation: Normal sinus rhythm with rate of 93, no obvious ST segment elevation or depression changes. MA 188, QRS 80, QTC 452. MDM Narrative Medical decision making narrative: 78-year-old female with elevated blood pressure up to taking new arthritis joint related medication, no fevers or chills, no swelling symptoms, no hives or itching, no shortness of breath or wheezing. She usually takes atenolol 50 mg each morning for blood pressure control, has been taking her medications as directed. Possible medication side effect versus other. Markedly elevated blood pressure, symmetrical on both arms on manual blood pressure measurement. EKG without obvious ischemic changes, blood test results and urinalysis results still pending. IV hydralazine 5 mg dose. Renal function normal, electrolytes unremarkable, troponin negative. Chest x-ray unremarkable. 190/80 range blood pressure, improved some, p.o. amlodipine dose. Urinalysis shows presence of inflammatory cells and many bacteria, urine culture requested. IV ceftriaxone. Prescription for cefdinir further antibiotic course sent to her pharmacy. Check urine culture results in 2 days with regular provider with blood pressure check. Repeat blood pressure 158/83, further improved. Will discharge home. Continue taking atenolol blood pressure medication. Avoid the new joint support rmyj-mcx-cbpuuli medication, in case it was related to transient blood pressure elevation worsening. Stable, improved. Return precautions discussed. Critical Care Time Critical Care Time Critical Care Time: Yes Total Critical Care Time: 31 Attestation: The high probability of a clinically significant, sudden or life threatening deterioration of the [cardiopulmonary, abdominopelvic, genitourinary] system(s) required my full and direct attention, intervention and personal management. The aggregate critical care time was [31] minutes. This time is in addition to time spent performing reported procedures but includes the following: [x] Data Review and interpretation [x] Patient assessment and monitoring of vital signs [x] Documentation [x] Medication orders and management Discharge Plan Departure Patient Disposition: Home Clinical Impression: Hypertension, Medication reaction, Urinary tract infection Activity Restrictions/Additional Instructions: History of hypertension for which she usually take atenolol medication, no missed doses, elevated blood pressure noted at home after taking 1st dose of an okgu-nsn-nkmcrzu joint support medication called 1[employer]. Unclear if this caused your blood pressure elevation but had been stable prior to this new medication exposure, stopped taking that medication for now, with the assumption that might have caused her blood pressure to be elevated. EKG and blood test showed no obvious end-organ complications of your elevated blood pressure. He had not seem to have any stroke symptoms or headache or head bleeding like symptoms. Continue taking your atenolol medication. Stopped taking the eqmx-tji-gpdagnp joint support medication. Recheck your blood pressure with your regular provider on Monday morning day after tomorrow. Return to this/nearest emergency department for any change worsening symptoms or any concerns prior Prescriptions: New cefdinir 300 mg capsule 300 mg PO BID 10 Days Qty: 20 0RF No Action atenolol 50 mg Tablet 50 mg PO DAILY acetaminophen 325 mg tablet 325 mg PO Q4H PRN (Reason: Pain) aspirin 81 mg Tablet,Delayed Release (Dr/Ec) 81 mg PO BID Qty: 40 0RF Referrals: Alejandro Negron DO [Primary Care Provider] - Stand Alone Forms: Patient Portal/API
--- NOTE | 2024-01-27 21:33 | EKG_ITS ---
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
[2024-01-27] MEDS: HYDRALAZINE 20 MG/ML VIAL 5 MG IV (21:49)
[2024-01-27] MEDS: SODIUM CHLORIDE 0.9% 1,000 ML 150 ML IV (21:49)
[2024-01-27 21:55] LABS: Add Manual Diff / Slide Review NO; Basophils Absolute Auto 0 /uL (0-100); Basophils Percent Auto 0.7 % (0-2); Eosinophils Absolute Auto 100 /uL (0-450); Eosinophils Percent Auto 1.9 % (2-4); Hematocrit 38.9 % (36-46); Lymphocytes Absolute Auto 1000 /uL (1100-4500); Lymphocytes Percent Auto 23.6 % (25-40); Mean Corpuscular HGB Conc 33.5 % (30-36); Mean Corpuscular Hemoglobin 27.1 PG (26-34); Mean Corpuscular Volume 81.1 fL (80-100); Monocytes Absolute Auto 500 /uL (0-900); Neutrophils Absolute Auto 2600 /uL (1500-7000); Neutrophils Percent Auto 61.8 % (50-75); Platelet Count 247 X10^3/uL (150-400); Red Cell Distribution Width 13.9 % (11.6-14.8); White Blood Cell Count 4.2 X10^3/uL (4.5-11.0)
--- NOTE | 2024-01-27 21:58 | PC.NURSE ---
Manual BP done on both arms, charted and MD notified.
--- NOTE | 2024-01-27 22:04 | PC.NURSE ---
Pt BP 202/120. Dr Covington notified. Verbal order for additional 10 mg Hydralazine IV.
[2024-01-27 22:05] LABS: Alanine Aminotransferase 18 IU/L (<35); Albumin 4.1 g/dL (3.5-5.0); Albumin Globulin Ratio 1.1 (1.0-2.8); Alkaline Phosphatase 64 U/L (38-126); Aspartate Aminotransferase 23 IU/L (14-36); BUN Creatinine Ratio 16.1 (6-22); Bilirubin Total 0.8 mg/dL (0.2-1.3); Blood Urea Nitrogen 10 mg/dL (7-17); Calcium 9.1 mg/dL (8.4-10.2); Carbon Dioxide 23 mmol/L (22-32); Chloride 102 mmol/L (98-107); Creatine Kinase 45 U/L (30-135); Estimated Glomerular Filt Rate > 60 mL/min (>60); Globulin 3.6 g/dL (1.7-4.1); Glucose 116 mg/dL (80-110); HEMOLYSIS < 15 (0-50); Potassium 3.7 mmol/L (3.4-5.1); Sodium 133 mmol/L (137-145); Total Protein 7.7 g/dL (6.3-8.2)
[2024-01-27 22:09] LABS: Appearance Urine UA CLEAR; Bilirubin Urine UA NEGATIVE (NEGATIVE); Color Urine UA YELLOW; Glucose Urine UA NEGATIVE (Negative); Ketones Urine UA NEGATIVE (NEGATIVE); Leukocyte Esterase Urine UA 2+ (NEGATIVE); Nitrite Urine UA NEGATIVE (Negative); Occult Blood Urine UA NEGATIVE (Negative); Protein Urine UA NEGATIVE (Negative); Specific Gravity Urine UA <=1.005 (1.000-1.035); Urobilinogen Urine UA 0.2 E.U./dL (0.2)
[2024-01-27 22:10] LABS: pH Urine UA 6.5 (4.5-8.0)
[2024-01-27] MEDS: HYDRALAZINE 20 MG/ML VIAL 10 MG IV (22:13)
[2024-01-27 22:16] LABS: Bacteria Urine Many (>30); Culture Indicated Urine Specimen Cultured; RBC Urine 0-1/HPF (0-5/HPF); Squamous Epithelial Cell Urine 0-1 /HPF (0-5/HPF); Urine Volume 10mL (spun); WBC Urine 5-10/HPF (0-5/HPF)
[2024-01-27 22:17] LABS: Troponin I < 0.012 ng/mL (0.01-0.034)
[2024-01-27] MEDS: AMLODIPINE 5 MG TABLET PO (22:20)
[2024-01-27] MEDS: cefTRIAXone 1,000 MG in SODIUM CHLORIDE 0.9% 100 ML 200 MG IV (22:35)
== END 2024-01-27 23:27 | disposition home or self-care (01) ==
PROVIDERS: Emergency Provider Emergency Medicine; PCP Family Medicine
DX: I10 Essential (primary) hypertension (principal); N39.0 Urinary tract infection, site not specified; R07.9 Chest pain, unspecified; T50.905A Adverse effect of unspecified drugs, medicaments and biological substances, initial encounter
CPT/HCPCS: 36415; 71045; 80053; 81001; 82550; 84484; 85025; 87077; 87086; 87186; 93005; 93010; 96361; 96365; 96375; 99284; J0360; J0696